=== PATIENT | female | born 1995 | race Caucasian/White ===

== ENCOUNTER 2018-01-29 12:55 | Emergency (ER) | END 2018-01-29 16:47 | disposition home or self-care (01) ==

== ENCOUNTER 2018-10-19 20:32 | Emergency (ER) | payer OTHER ==
[~2018-10-19] VITALS: Ht 167.6 cm; Wt 84.3 kg
[~2018-10-19 20:32] MED LIST: ACET500C5 PO; CEPH500C PO; FER325 PO; IBUP-1542 PO; IBUP800T48 PO; METH0.2T45 PO; PREN-39 PO
[2018-10-19 20:36] VITALS: BP 155/79; PULSE 100; RESP 18; Ht 167.6 cm; Wt 84.3 kg
--- NOTE | 2018-10-19 21:04 | ERD ---
ER Documentation Chief Complaint Chief Complaint cough/rash x1 week. no fever/other symptoms HPI 33-year-old female, presents to the emergency department, complaining of 2 weeks with worsening of patchy, erythematous, pruritic rash located and bilateral knees and around the neck. No treatment attempted at this time. The patient denies fevers, no chills. ROS All systems reviewed and are negative except as per history of present illness. Medications Home Meds Active Scripts Triamcinolone Acetonide (Triamcinolone Acetonide) 0.1% - 15 Gm Cream.gm., 1 APPLIC TOP BID, #1 TUB Prov:RANDALL AGUIRRE MD 10/19/18 Prednisone* (Prednisone*) 20 Mg Tab, 60 MG PO DAILY for 5 Days, TAB Prov:RANDALL AGUIRRE MD 10/19/18 Ibuprofen* (Motrin*) 600 Mg Tab, 600 MG PO Q6, #30 TAB Prov:MASON UREÑA PA-C 01/29/18 Acetaminophen* (Tylophen*) 500 Mg Capsule, 500 MG PO Q6H PRN for PAIN, #20 TAB Prov:MARGARITO MCKEON 08/25/15 Cephalexin* (Cephalexin*) 500 Mg Capsule, 500 MG PO Q6 for 7 Days, CAP Prov:MARGARITO MCKEON 08/25/15 Ibuprofen* (Motrin*) 800 Mg Tab, 800 MG PO Q6H PRN for PAIN, #30 TAB Prov:CALE MOLINA NP 07/24/15 Methylergonovine Maleate* (Methylergonovine Maleate*) 0.2 Mg Tablet, 0.2 MG PO Q8 for 2 Days, TAB Prov:CALE MOLINA NP 07/24/15 Ferrous Sulfate* (Ferrous Sulfate*) 325 Mg Tabec, 325 MG PO BID, #60 TAB Prov:CALE MOLINA NP 07/24/15 Reported Medications Vits W-Ca,Fe,Fa(<1MG) ( Vitamins) 1 Tab Tablet, 1 TAB PO 07/13/15 Allergies Allergies: Coded Allergies: No Known Allergy (Unverified , 01/29/18) PMhx/Soc Medical and Surgical Hx: pt denies Medical Hx, pt denies Surgical Hx History of Surgery: No Anesthesia Reaction: No Hx Neurological Disorder: No Hx Respiratory Disorders: No Hx Cardiac Disorders: No Hx Psychiatric Problems: No Hx Miscellaneous Medical Probl: No Hx Alcohol Use: No Hx Substance Use: No Hx Tobacco Use: No Smoking Status: Never smoker Physical Exam Vitals Vital Signs Date Temp Pulse Resp B/P (MAP) Pulse Ox O2 O2 Flow FiO2 Time Delivery Rate 10/19/18 97.2 100 18 155/79 98 20:36 (104) Physical Exam Const: No acute distress Head: Atraumatic Eyes: Normal Conjunctiva ENT: Normal External Ears, Nose and Mouth. Neck: Full range of motion. No meningismus. Resp: Clear to auscultation bilaterally Cardio: Regular rate and rhythm, no murmurs Abd: Soft, non tender, non distended. Normal bowel sounds Skin: Multiform, erythematous plaques located in lower extremities and neck. Back: No midline or flank tenderness Ext: No cyanosis, or edema Neur: Awake and alert Psych: Normal Mood and Affect Procedures/MDM Differential diagnosis include but not limited to: Viral exanthema, seborrheic dermatitis, scabies, acute allergic reaction, medication side effect. low suspicion for systemic infectious process, angioedema, anaphylactic shock. Physical examination and clinical presentation consistent most likely with eczema. Results and clinical impression discussed with the patient who agrees with management. The patient is stable to be treated outpatient and will be discharged home. Some side effects of prescribed medications (skin atrophy, nausea, vomiting, diarrhea, interactions with other medications) were reviewed. The patient was instructed to follow up with the primary care provider in the next 48h. If symptoms persist, worsen or new symptoms develop, then patient should return to the ED immediately. Instructions explained and given directly by me with acknowledgment and demonstrated understanding. Disclaimer: Inadvertent spelling and grammatical errors are likely due to EHR/dictation software use and do not reflect on the overall quality of patient care. Also, please note that the electronic time recorded on this note does not necessarily reflect the actual time of the patient encounter. Departure Diagnosis: Primary Impression: Eczema Condition: Stable Additional Instructions: Thank you very much for allowing us to participate in your care. Your health and safety is our top priority at [facility]. Call your primary care doctor TOMORROW for an appointment during the next 2-4 days and bring all the information and medications prescribed. Have prescriptions filled and follow precisely the directions on the label. If the symptoms get worse and your provider is unavailable, return to the Emergency Department immediately. RANDALL AGUIRRE MD Oct 19, 2018 21:04
[2018-10-19] MEDS ORDERED: TRIA15CR55 TOP (21:06)
[2018-10-19] MEDS ORDERED: PRED20TA PO (21:06)
[2018-10-19] MEDS ORDERED: CLOB60CR2 TOP (21:14)
== END 2018-10-19 21:17 | disposition home or self-care (01) ==
LOC: FTE 20:32
DX: L30.9 Dermatitis, unspecified (principal)
CPT/HCPCS: 99283

== ENCOUNTER 2018-10-24 18:31 | Emergency (ER) | payer OTHER ==
[~2018-10-24] VITALS: Ht 170.2 cm; Wt 83.5 kg
[~2018-10-24 18:31] MED LIST changes: +CLOB60CR2 TOP; +PRED20TA PO; +TRIA15CR55 TOP
[2018-10-24 18:51] VITALS: Ht 170.2 cm; Wt 83.5 kg
[2018-10-24] MEDS ORDERED: HYDR-3029 PO (20:13)
[2018-10-24 20:34] VITALS: BP 121/69; PULSE 69; RESP 15
--- NOTE | 2018-10-24 20:46 | ERD ---
ER Documentation Chief Complaint Chief Complaint RASH, GEN BODY X2WKS; SEEM HERE LAST WK HPI 23-year-old female presenting with rash to lower extremities and torso. Patient states that she was seen here a week ago and given prednisone. Patient states that the rash has not improved. Patient denies any other medical problems. She was given erythromycin last week due to a sore throat which is now resolved. Rash seemed to appear after taking medications. Denies any facial swelling. Denies any fevers. Denies chest pain or shortness of breath. Denies other medical problems. NKDA. Surgical history denies. Social history denies ROS All systems reviewed and are negative except as per history of present illness. Medications Home Meds Active Scripts Hydroxyzine Hcl* (Hydroxyzine Hcl*) 10 Mg Tablet, 10 MG PO Q6H PRN for ITCHING, #30 TAB Prov:JOSE AGUILAR PA-C 10/24/18 Clobetasol Propionate* (Clobetasol Propionate*) 60 Gm Cream.gm., 1 APPLIC TOP BID, #1 TUB Prov:RANDALL AGUIRRE MD 10/19/18 Triamcinolone Acetonide (Triamcinolone Acetonide) 0.1% - 15 Gm Cream.gm., 1 APPLIC TOP BID, #1 TUB Prov:RANDALL AGUIRRE MD 10/19/18 Prednisone* (Prednisone*) 20 Mg Tab, 60 MG PO DAILY for 5 Days, TAB Prov:RANDALL AGUIRRE MD 10/19/18 Ibuprofen* (Motrin*) 600 Mg Tab, 600 MG PO Q6, #30 TAB Prov:MASON UREÑA PA-C 01/29/18 Acetaminophen* (Tylophen*) 500 Mg Capsule, 500 MG PO Q6H PRN for PAIN, #20 TAB Prov:MARGARITO MCKEON 08/25/15 Cephalexin* (Cephalexin*) 500 Mg Capsule, 500 MG PO Q6 for 7 Days, CAP Prov:MARGARITO MCKEON 08/25/15 Ibuprofen* (Motrin*) 800 Mg Tab, 800 MG PO Q6H PRN for PAIN, #30 TAB Prov:CALE MOLINA NP 07/24/15 Methylergonovine Maleate* (Methylergonovine Maleate*) 0.2 Mg Tablet, 0.2 MG PO Q8 for 2 Days, TAB Prov:CALE MOLINASoo [employer] 07/24/15 Ferrous Sulfate* (Ferrous Sulfate*) 325 Mg Tabec, 325 MG PO BID, #60 TAB Prov:CALE MOLINA [employer] 07/24/15 Reported Medications Vits W-Ca,Fe,Fa(<1MG) ( Vitamins) 1 Tab Tablet, 1 TAB PO 07/13/15 Allergies Allergies: Coded Allergies: No Known Allergy (Unverified , 01/29/18) PMhx/Soc History of Surgery: No Anesthesia Reaction: No Hx Neurological Disorder: No Hx Respiratory Disorders: No Hx Cardiac Disorders: No Hx Psychiatric Problems: No Hx Miscellaneous Medical Probl: No Hx Alcohol Use: No Hx Substance Use: No Hx Tobacco Use: No Smoking Status: Never smoker FmHx Family History: No diabetes, No coronary disease, No other Physical Exam Vitals Vital Signs Date Temp Pulse Resp B/P (MAP) Pulse Ox O2 O2 Flow FiO2 Time Delivery Rate 10/24/18 98.0 69 15 121/69 98 Room Air 20:34 (86) 10/24/18 98.0 66 19 130/73 97 18:51 (92) Physical Exam GENERAL: The patient is well-appearing, well-nourished, in no acute distress HEENT: Atraumatic. Conjunctivae are pink. Pupils equal, round, and reactive to light. There is no scleral icterus. Tympanic membranes clear bilaterally. Oropharynx clear. CHEST: Clear to auscultation bilaterally. There are no rales, wheezes or rhonchi. HEART: Regular rate and rhythm. No murmurs, clicks, rubs or gallops. No S3 or S4. SKIN: Papular erythematous rash noted to extremities with no vesicles or pustules. No urticaria Procedures/MDM MDM: 23-year-old female presenting with rash. Dr. Claire evaluated patient at bedside and felt rash appeared to be HSP. I did not feel his indication for blood work for. Patient's vitals are stable patient's exam is non-concerning. Patient will be discharged stricter precautions and told to follow-up with primary care within 1-2 days for close evaluation. Patient is told if symptoms change or worsen to return immediately to the ER. All questions answered at discharge Departure Diagnosis: Primary Impression: HSP (Henoch Schonlein purpura) Condition: Stable Patient Instructions: Henoch-Schonlein Purpura Referrals: [facility] YOU HAVE RECEIVED A MEDICAL SCREENING EXAM AND THE RESULTS INDICATE THAT YOU DO NOT HAVE A CONDITION THAT REQUIRES URGENT TREATMENT IN THE EMERGENCY DEPARTMENT. FURTHER EVALUATION AND TREATMENT OF YOUR CONDITION CAN WAIT UNTIL YOU ARE SEEN IN YOUR DOCTORS OFFICE WITHIN THE NEXT 1-2 DAYS. IT IS YOUR RESPONSIBILITY TO MAKE AN APPOINTMENT FOR FOLOW-UP CARE. IF YOU HAVE A PRIMARY DOCTOR --you should call your primary doctor and schedule an appointment IF YOU DO NOT HAVE A PRIMARY DOCTOR YOU CAN CALL OUR PHYSICIAN REFERRAL HOTLINE AT IF YOU CAN NOT AFFORD TO SEE A PHYSICIAN YOU CAN CHOSE FROM THE FOLLOWING [facility] [address] [facility] [address] [facility] [address] [facility] [address] [facility] [address] [facility] [address] Additional Instructions: FOLLOW UP WITH YOUR PRIMARY CARE PHYSICIAN TOMORROW.Return to this facility if you are not improving as expected. JOSE AGUILAR PA-C Oct 24, 2018 20:46
== END 2018-10-24 20:34 | disposition home or self-care (01) ==
LOC: FTE 18:31
DX: D69.0 Allergic purpura (principal)
CPT/HCPCS: 99283